=== PATIENT | female | born 1985 | race Hispanic/Latino ===

== ENCOUNTER → 2017-05-31 | Day surgery (SDC) | payer MEDICAID, OTHER ==
[~2017-05-31] MED LIST: Acetaminophen 500 MG TAB ONE
--- NOTE | 2017-05-31 15:38 | RAD ---
RIGHT ANKLE 3 VIEWS: Date: 05/31/17 PROVIDED CLINICAL HISTORY: Right ankle pain status post injury. FINDINGS: No evidence for fracture or other acute osseous abnormality. If there is persistent clinical concern, conservative management and follow-up imaging are advised. IMPRESSION: As above. POS: COLLIN
[2017-05-31 16:40] VITALS: BMI 39.6
--- NOTE | 2017-05-31 17:11 | SS ---
LABOR AND DELIVERY TRIAGE NOTE DATE OF SERVICE: 05/31/2017 REGULAR PHYSICIAN: [facility]. EVALUATING PHYSICIAN: Chalino Bolaños M.D. HISTORY OF PRESENT ILLNESS: Ms. Marc is a 31-year-old G7, P4, AB2 with an estimated date of confinement of 09/30/2017 who was brought up from the emergency room after a fall at home in which she sprained her ankle. She has been evaluated in the ER and has no fracture. Further questioning of the patient shows that the patient fell slowly on her side and did not have any direct forceful ab dominal contact. She denies vaginal bleeding, leakage of fluid or abdominal pain at this time. PAST OBSTETRICAL HISTORY: Remarkable for 4 vaginal deliveries, all reportedly uncomplicated and two miscarriages for which she required D and Cs. PAST MEDICAL HISTORY: Hypothyroid. CURRENT MEDICATIONS: vitamins and Synthroid. PAST SURGICAL HISTORY: Unremarkable. ALLERGIES: No known allergies. SOCIAL HISTORY: She denies tobacco or alcohol use. REVIEW OF SYSTEMS: Denies nausea, vomiting, fever, chills, vaginal bleeding. PHYSICAL EXAMINATION: VITAL SIGNS: Stable. She is afebrile. ABDOMEN: Soft and nontender. It is gravid. There is no guarding or rebound. PELVIC: Deferred, but no vaginal bleeding is seen. heart tones by Doppler are easy to obtain. ASSESSMENT: 1. 22-week intrauterine . 2. No evidence of labor. 3. Sprained ankle. PLAN: The patient will be discharged home at this time and she has been given precautions. She will follow up with the clinic for her next scheduled appointment.
== END ==
LOC: ERS 13:12 → L&D/OP 15:29
PROVIDERS: ATTEND Obstetrics & Gynecology
DX: O99.89 Other specified diseases and conditions complicating pregnancy, childbirth and the puerperium (principal); S93.401A Sprain of unspecified ligament of right ankle, initial encounter; O99.282 Endocrine, nutritional and metabolic diseases complicating pregnancy, second trimester; E03.9 Hypothyroidism, unspecified; Z3A.22 22 weeks gestation of pregnancy; Z79.899 Other long term (current) drug therapy; W19.XXXA Unspecified fall, initial encounter; Y92.009 Unspecified place in unspecified non-institutional (private) residence as the place of occurrence of the external cause

== ENCOUNTER 2017-09-30 05:30 | Inpatient (IN) | payer OTHER, SELFPAY ==
[2017-09-30 10:58] VITALS: BMI 40.4
[2017-09-30] MEDS ORDERED: NS / Oxytocin 40 units/1000ml 1,000 ML IV PRN (12:19)
[2017-09-30] MEDS ORDERED: Lidocaine 1% (PF) 30 ML VIAL SC PRN (12:19)
[2017-09-30] MEDS ORDERED: HYDROcodone/Acetaminophen 5/325 mg Tablet PO PRN (12:19)
[2017-09-30] MEDS ORDERED: Ibuprofen 800 MG TAB PO PRN (12:19)
[2017-09-30] MEDS ORDERED: Acetaminophen/Codeine 30-300mg Tablet PO PRN (12:19)
[2017-09-30] MEDS ORDERED: NS w/ Oxytocin 10 units 500 ML IV SCH (12:30)
[2017-09-30] MEDS ORDERED: Misoprostol 100 MCG TAB VAG SCH (12:30)
[2017-09-30] MEDS ORDERED: Acetaminophen 500 MG TAB PO PRN (12:58)
[2017-09-30] MEDS ORDERED: Ondansetron HCl/PF 4 MG/2 ML Vial IVP PRN (12:58)
[2017-09-30] MEDS ORDERED: Promethazine HCl 25 MG/ML VIAL IM PRN (12:58)
[2017-09-30] MEDS ORDERED: Penicillin G Potassium 5 MILL.UNITS in Sodium Chloride 0.9% 100 ML IVPB SCH (13:00)
[2017-09-30] MEDS: Lactated Ringer's 1,000 ML IV SCH (13:08)
--- NOTE | 2017-09-30 14:30 | PDOC.LDHP ---
Labor and Delivery H&P Chief complaint: contractions Current complications: other Past Medical History: 1. HTN 2. Anemia 3. Hypothyroid 4. TB exp - Physical Exam Heart: RRR Lungs: CTAB Abdomen: gravid Extremeties: no edema FHT: category 1 (130/mod/+accels) [place] contractions every: 3-4min - Vaginal Exam cm dilated: 4 Effacement: 50% Station: -2 - OB Labs Blood type: A RH: positive Antibody Screen: negative HIV: negative RPR: negative HEPSAg: negative 1 hour GCT: negative GBS: negative Urine drug screen: negative Rubella: non-immune - Assessment L&D Assessment: elective induction at term (post-dates IOL) - Plan Plan: admit to L&D, cervical ripening, labor augmentation if indicated -: 1. , sIUP, post dates IOL -CAT I strip -Will admit for induction of labor -50/-2, favorable chirinos score of 6-7 -Will continue cervical checks [id number] until reaches active labor -Patient desires epidural 2. Hypothyroidism -Will continue home dose of synthroid 3. Hx of Anemia -No concern at this time, will expectantly manage and consider following up H/H if delivery has a large QBL <Danita Win - Last Filed: 10/01/17 22:56> <Yoshi Fernández - Last Filed: 10/02/17 08:37> Allergies/Adverse Reactions: Allergies Allergy/AdvReac Type Severity Reaction Status Date / Time No Known Allergies Allergy Verified 09/30/17 10:58 Attending Addendum - Attending Addendum Date/Time: 10/02/17 0837 I personally evaluated the patient and discussed the management with Dr. Win I agree with the History, Examination, Assessment and Plan documented above with any addition or exceptions noted below. <Yoshi Fernández - Last Filed: 10/02/17 08:37>
[2017-09-30 15:48] LABS: Hemoglobin 11.2 g/dL (12.0-16.0); Mean Corpuscular HGB CONC 34.1 g/dL (32.0-36.0); Mean Corpuscular Volume 85.1 fL (78.0-98.0); Mean Platelet Volume 10.1 fL (7.4-10.4); Platelet Count 163 thou/uL (130-400); RBC Distribution Width 13.8 % (11.5-14.5); Red Blood Cell (RBC) Count 3.87 mill/uL (4.20-5.40); White Blood Cell (WBC) Count 6.6 thou/uL (4.8-10.8)
[2017-09-30 16:16] LABS: Syphilis Antibody Nonreactive (Nonreactive); Syphilis Antibody Index 0.13 S/CO (<1.00 Non-Reactive)
[2017-09-30 16:17] LABS: HBSAg Index 0.21 S/CO (0-0.99); Hep B Surf Ag Non-Reactive S/CO (NonReactive)
[2017-09-30] MEDS ORDERED: Penicillin G 2.5 MILL.units 2.5 MILL.UNITS in Premix Bag 1 BAG IVPB SCH (17:00)
--- NOTE | 2017-09-30 19:26 | PDOC.OBLPN ---
FMR OB Labor PN: Subj - Interval History Hospital Day: 0 Chief Complaint: painful contractions Interval History: Patient feeling contractions q4 FMR OB Labor PN: Obj - Maternal Vital signs: VS reviewed and normal FMR OB Labor PN: Exam - Physical Exam General: NAD, awake, alert and oriented - Pelvic Exam SVE: ?2/50/-3 FMR OB Labor PN: Data - Labs Lab results: Laboratory Results - last 24 hr 09/30/17 09/30/17 09/30/17 10:46 10:46 10:46 WBC RBC Hgb Hct MCV MCH MCHC RDW Plt Count MPV Syphilis IgG/IgM Ab Nonreactive Hep Bs Antigen Non-Reactive Blood Type A POSITIVE Antibody Screen NEGATIVE 09/30/17 10:46 WBC 6.6 RBC 3.87 L Hgb 11.2 L Hct 33.0 L MCV 85.1 MCH 29.0 MCHC 34.1 RDW 13.8 Plt Count 163 MPV 10.1 Syphilis IgG/IgM Ab Hep Bs Antigen Blood Type Antibody Screen FMR OB Labor PN: A/P Disposition: 32 yo at 40.0w here for elective IOL - no cervical change appreciated on - will give break, allow to eat, and re-evaluate by night team for cervical ripening
[2017-09-30] MEDS ORDERED: Bupivacaine 0.75% 13.4 ML, fentaNYL Citrate/PF 400 MCG in Sodium Chloride 0.9% 78.6 ML EPIDURAL SCH (20:00)
[2017-09-30] MEDS ORDERED: DISCONTINUE ALL PREVIOUS NARCOTICS FS SCH (20:00)
--- NOTE | 2017-09-30 20:45 | PDOC.LDPN ---
Labor & Delivery Progress Note - Objective Vital signs reviewed and normal: yes (BP: 103/54 HR: 71) General: NAD, resting Uterine fundus: non tender Dilation: closed Effacement: 50% Station: -3 FHT: category 1, variability present (accelerations present) [place] contractions every: originally q5m after d/c pit; currently no contractions Procedures: Cytotec placed @ 2100 Resuscitative measures: maternal position change - Assessment (1) Term Code(s): Z34.80 - ENCOUNTER FOR SUPRVSPeter OF NORMAL , UNSP TRIMESTER Current Visit: Yes Status: Acute -: 32YO at 40.0 weeks here for an elective IOL - Pit was stopped and patient was allowed to eat. - ~1 hour after eating, check @ ~2100 was closed/50/-3 so cytotec was placed. - Will recheck in 4 hours.
[2017-09-30] MEDS ORDERED: Misoprostol 100 MCG TAB ONE (20:49)
[2017-10-01] MEDS: Misoprostol 100 MCG TAB VAG SCH ×4 (01:04→13:18)
--- NOTE | 2017-10-01 01:12 | PDOC.LDPN ---
Labor & Delivery Progress Note - Subjective Subjective: comfortable, no concerns - Objective Vital signs reviewed and normal: yes General: NAD, resting Uterine fundus: non tender Dilation: closed Effacement: 50% Station: -3 FHT: category 1, variability present Resuscitative measures: maternal IV fluids - Assessment (1) Term Code(s): Z34.80 - ENCOUNTER FOR SUPRVSN OF NORMAL , UNSP TRIMESTER Current Visit: Yes Status: Acute Plan: labor augmentation -: 32YO at 40.0 weeks here for an elective IOL. - check @ ~0100 was unchanged from last check s/p cytotec x 1. - cytotec x 2 was placed @ ~0100. - Will recheck in 4 hours to evaluate for cervical change.
--- NOTE | 2017-10-01 05:02 | PDOC.LDPN ---
Labor & Delivery Progress Note - Subjective Subjective: comfortable - Objective Vital signs reviewed and normal: yes General: NAD, resting Uterine fundus: non tender Dilation: 2 Effacement: 50% Station: -2 FHT: category 1, variability present - Assessment (1) Term Code(s): Z34.80 - ENCOUNTER FOR SUPRVSN OF NORMAL , UNSP TRIMESTER Current Visit: Yes Status: Acute -: 32YO at 40.0 weeks here for an elective IOL. - Check @ 04:45 was significant for some progress @ 2/50/-2. - Cytotec x 3 was given as Childress score is only 5. - Will recheck in 4 hours.
[2017-10-01] MEDS: Lactated Ringer's 1,000 ML IV SCH ×2 (05:32→13:18)
[2017-10-01] MEDS ORDERED: Levothyroxine Sodium 50 MCG TAB PO SCH (06:00)
--- NOTE | 2017-10-01 08:34 | PDOC.LDPN ---
Labor & Delivery Progress Note - Subjective Subjective: comfortable - Objective Vital signs reviewed and normal: yes General: resting Uterine fundus: non tender Dilation: unable to determine Station: -3 FHT: category 1 [place] contractions every: q15 min - Assessment (1) Term Code(s): Z34.80 - ENCOUNTER FOR SUPRVSN OF NORMAL , UNSP TRIMESTER Current Visit: Yes Status: Acute (2) Hypothyroidism affecting in third trimester Code(s): O99.283 - ENDO, NUTRITIONAL AND METAB DISEASES COMP PREG, THIRD TRI; E03.9 - HYPOTHYROIDISM, UNSPECIFIED Current Visit: Yes Status: Acute (3) Anemia affecting in third trimester Code(s): O99.013 - ANEMIA COMPLICATING , THIRD TRIMESTER Current Visit: Yes Status: Acute (4) Glucose intolerance Code(s): E74.39 - OTHER DISORDERS OF INTESTINAL CARBOHYDRATE ABSORPTION Current Visit: Yes Status: Acute (5) Obesity affecting Code(s): O99.210 - OBESITY COMPLICATING , UNSPECIFIED TRIMESTER Current Visit: Yes Status: Acute Plan: other -: 32 yo now at 40.1w (EDC 09/30/17) by 11.2w sono here for elective induction 1. TIUP - Induction moving very slowly - Unable to obtain clear cervical check 2/2 station and balloon placement attempted but unsuccessful - Cytotec #4 placed - If contraction pattern improves, will consider augmenting with pitocin 2. Hypothyroidism - On synthroid 50 mcg at start of , normal since discontinued mid- - Antibodies positive - TSH all WNL (1.7, 0.792, 1.31, 0.924) 3. Remote history of chlamydia (2006) - Treated and negative this 4. Obesity 5. H/o D&C 6. Anemia of - H&H stable on admission 7. Glucose intolerance - 1 hour GTT elevated, 3 hour WNL - a1c 5.6 8. Retroplacental fibroid 9. Fundal placenta 10. GBS negative Plan reviewed with Dr. Fernández who agrees.
--- NOTE | 2017-10-01 12:14 | PDOC.LDPN ---
Labor & Delivery Progress Note - Subjective Subjective: comfortable - Objective Vital signs reviewed and normal: yes General: resting Uterine fundus: non tender Dilation: unable to determine Station: -3 FHT: category 1 (135/mod/+accels/no decels) [place] contractions every: q5-15 - Assessment (1) Term Code(s): Z34.80 - ENCOUNTER FOR SUPRVSN OF NORMAL , UNSP TRIMESTER Status: Acute (2) Hypothyroidism affecting in third trimester Code(s): O99.283 - ENDO, NUTRITIONAL AND METAB DISEASES COMP PREG, THIRD TRI; E03.9 - HYPOTHYROIDISM, UNSPECIFIED Status: Acute (3) Anemia affecting in third trimester Code(s): O99.013 - ANEMIA COMPLICATING , THIRD TRIMESTER Status: Acute (4) Glucose intolerance Code(s): E74.39 - OTHER DISORDERS OF INTESTINAL CARBOHYDRATE ABSORPTION Status : Acute (5) Obesity affecting Code(s): O99.210 - OBESITY COMPLICATING , UNSPECIFIED TRIMESTER Status: Acute -: 32 yo now at 40.1w (EDC 09/30/17) by 11.2w sono here for elective induction 1. TIUP - Induction moving very slowly - Unable to obtain clear cervical check 2/2 station and balloon placement attempted but unsuccessful - s/p Cytotec x4 - Discussed with patient and she would like to return home and expectantly manage there - Will order BPP, NST reassuring 135/mod/+accels/no decels - If BPP WNL, will schedule induction for next week if does not return in labor prior 2. Hypothyroidism - On synthroid 50 mcg - Antibodies positive - TSH all WNL (1.7, 0.792, 1.31, 0.924) 3. Remote history of chlamydia (2006) - Treated and negative this 4. Obesity 5. H/o D&C 6. Anemia of - H&H stable on admission 7. Glucose intolerance - 1 hour GTT elevated, 3 hour WNL - a1c 5.6 8. Retroplacental fibroid 9. Fundal placenta 10. GBS negative Plan reviewed with Dr. Fernández who agrees. <Emelia Andrade E - Last Filed: 10/01/17 12:31> Attending Addendum - Attending Addendum Date/Time: 10/01/17 1600 I personally evaluated the patient and discussed the management with Dr. Andrade I agree with the History, Examination, Assessment and Plan documented above with any addition or exceptions noted below. Extremely difficult exam dut to anatomy and high station. Ultrasound confirms vertex. Adequate YOHANA, reassuring NST. <Yoshi Fernández - Last Filed: 10/01/17 16:01>
[2017-10-01 13:17] VITALS: BP 104/71; TEMP 98.4
[2017-10-01] MEDS: NS w/ Oxytocin 10 units 500 ML IV SCH (13:18)
--- NOTE | 2017-10-01 13:30 | ULT ---
BIOPHYSICAL PROFILE: Real-time imaging of the pelvis was performed. This shows amniotic fluid that overall appears somewh at diminished. The amniotic fluid index is 7.2. There is a pocket of fluid greater than 2 cm. Ther efore, by biophysical profile, the scar is 2 of a possible 2 on amniotic fluid. movements, fet al breathing, and tone also score 2. heart rate 137 b.p.m. Placenta is fundal in location. IMPRESSION: biophysical profile score of 8 out a possible 8. POS: COLLIN
--- NOTE | 2017-10-01 15:24 | PDOC.LDPN ---
Labor & Delivery Progress Note - Subjective Subjective: comfortable - Objective Vital signs reviewed and normal: yes General: resting Uterine fundus: non tender Dilation: unable to determine Station: -3 FHT: category 1 [place] contractions every: 4-5 minutes - Assessment (1) Term Code(s): Z34.80 - ENCOUNTER FOR SUPRVSN OF NORMAL , UNSP TRIMESTER Status: Acute (2) Hypothyroidism affecting in third trimester Code(s): O99.283 - ENDO, NUTRITIONAL AND METAB DISEASES COMP PREG, THIRD TRI; E03.9 - HYPOTHYROIDISM, UNSPECIFIED Status: Acute (3) Anemia affecting in third trimester Code(s): O99.013 - ANEMIA COMPLICATING , THIRD TRIMESTER Status: Acute (4) Glucose intolerance Code(s): E74.39 - OTHER DISORDERS OF INTESTINAL CARBOHYDRATE ABSORPTION Status : Acute (5) Obesity affecting Code(s): O99.210 - OBESITY COMPLICATING , UNSPECIFIED TRIMESTER Status: Acute Plan: other -: 32 yo now at 40.1w (EDC 09/30/17) by 11.2w sono here for elective induction 1. TIUP - Unable to obtain clear cervical check 2/2 station and balloon placement attempted but unsuccessful - s/p Cytotec x4 - Discussed with patient and she would like to return home and expectantly manage there - BPP/NST 12/17 and induction (cervidil) scheduled for next Friday as this one was unsuccessful with pit/cytotec 2. Hypothyroidism - On synthroid 50 mcg - Antibodies positive - TSH all WNL (1.7, 0.792, 1.31, 0.924) - Continue 3. Remote history of chlamydia (2006) - Treated and negative this 4. Obesity 5. H/o D&C 6. Anemia of - H&H stable on admission 7. Glucose intolerance - 1 hour GTT elevated, 3 hour WNL - a1c 5.6 8. Retroplacental fibroid 9. Fundal placenta 10. GBS negative Plan reviewed with Dr. Fernández who agrees. Labor precautions and return precautions given. Kick count instructions discussed. <Emelia Andrade - Last Filed: 10/01/17 15:24> Attending Addendum - Attending Addendum Date/Time: 10/01/17 1603 I personally evaluated the patient and discussed the management with Dr. Andrade I agree with the History, Examination, Assessment and Plan documented above with any addition or exceptions noted below. Unfortunate unsuccessful attempt at IOL. Multigravida with adequate pelvis, baby remains at high station. U/S and BPP are reassuring as is EFM. Cytotec & pitocin ineffective. Unable to place balloon. I do not feel that continuing is in the patients best interest. eliable patient - will discharge with detailed labor precautions including kick counts. Also recommend NST in 2- 3 days if undelivered. If no spontaneous labor then try next week with Cervidil and pit. <Yoshi Fernández - Last Filed: 10/01/17 16:09>
== END 2017-10-01 15:48 | disposition home health service (06) | DRG 775 ==
LOC: L&D 10:15
PROVIDERS: ADMIT Student in an Organized Health Care Education/Training Program; ATTEND Student in an Organized Health Care Education/Training Program
PROC: 3E0P7VZ Introduction of Hormone into Female Reproductive, Via Natural or Artificial Opening (ICD-10-PCS; principal; 2017-09-30)
DX: O48.0 Post-term pregnancy (principal); O99.284 Endocrine, nutritional and metabolic diseases complicating childbirth; O99.02 Anemia complicating childbirth; O99.214 Obesity complicating childbirth; O99.814 Abnormal glucose complicating childbirth; E03.9 Hypothyroidism, unspecified; Z3A.40 40 weeks gestation of pregnancy; O61.0 Failed medical induction of labor
CPT/HCPCS: 76819; 85027; 86780; 86850; 86900; 86901; 87340; A4216; J3010; J7050

== ENCOUNTER 2017-10-08 22:00 | Inpatient (IN) | payer MEDICAID, OTHER, SELFPAY ==
[2017-10-09 01:16] VITALS: BMI 40.6
[2017-10-09] MEDS: Lactated Ringer's 1,000 ML IV SCH ×3 (01:30→09:47)
[2017-10-09] MEDS ORDERED: Promethazine HCl 25 MG/ML VIAL IM PRN ×3 (02:38→12:30)
[2017-10-09] MEDS ORDERED: Docusate 100 MG CAP PO PRN (02:38)
[2017-10-09] MEDS ORDERED: Ondansetron HCl/PF 4 MG/2 ML Vial IVP PRN ×4 (02:38→12:30)
--- NOTE | 2017-10-09 02:43 | PDOC.FPROB ---
FMR OB H&P: HPI - History of Present Illness Chief Complaint: induction of labor History of Present Illness: 32 yo @ 41.2 by 11 wk sono here for post-dates induction. Baby moving well, no loss of fluid or vaginal bleeding. Mother is having contractions every 4-5 minutes. FMR OB H&P: Current - Care : 6 Para: [id number] Gestational age: 41.2 Due date: September 30 Dating Criteria: 11 wk sono - OB Labs Blood type: A RH: positive Antibody Screen: negative HIV: negative RPR: negative HepBsAg: negative Rubella: immune Quad screen: unknown Gonorrhea: negative Chlamydia: negative 3 hour GTT: 82/144/109/58 A1c: 5.6 GBS: negative H&H: 10.5/31.3 - First Trimester Ultrasound First trimester: posterior fibroid - Anatomy Survey Anatomy survey: wnl placenta posterior FMR OB H&P: History - Past Medical History PMH: hypothyroidism, obesity, hx of chlamydia in 2006 - OB History OB History: Hx of 2 spontaneous abortions, one at 6 weeks and one at 12 weeks. Hx 3 vaginal deliveries at 37, 38, and 39 weeks, weights were 6 lb, 7 lb 12 oz, and 5 lb 5 oz. Hx of chlamydia in 2006 s/p tx, neg in this . failed induction 1 week ago. Anemia of with this . - Surgical History Sx History: none - Social History Social History: no t/a/d - Family History Family History: father with HTN and prediabetes, aunt with [place], denied cancer or other genetic diseases FMR OB H&P: Medications - Current Home Medications: Medication Instructions Recorded Confirmed Type Levothyroxine Sodium [Synthroid] 50 mcg PO DAILY 05/31/17 10/09/17 History Vitamin 1 tablet PO DAILY 05/31/17 10/09/17 History Allergies/Adverse Reactions: Allergies Allergy/AdvReac Type Severity Reaction Status Date / Time No Known Allergies Allergy Verified 10/09/17 01:07 FMR OB H&P: ROS - Review of Systems General: denies: fever/chills Eyes: denies: eye pain, vision changes ENT: denies: rhinorrhea, sore throat Cardiovascular: denies: chest pain Respiratory: denies: cough, congestion Gastrointestinal: denies: nausea, vomiting, diarrhea, constipation, bright red blood, dark black tarry stools Genitourinary (Female): denies: dysuria, vaginal bleeding FMR OB H&P: Vital Signs - Maternal Vital signs: Vital Signs - First Documented Temp Pulse Resp BP 98.6 F 73 18 125/56 L 10/09/17 01:04 10/09/17 01:04 10/09/17 01:04 10/09/17 01:04 - Heart Tones Baseline: 135 Variability: moderate Acceleration: present Deceleration: absent Category: category 1 [place] contractions every: 4-5 minutes FMR OB H&P: Physical Exam - Physical Exam General: NAD, awake, alert and oriented HEENT: normocephalic and atraumatic, PERRLA, MMM, oropharynx clear Neck: supple, no LAD Heart: RRR, normal S1/S2, no murmurs/rubs/gallops, pulses present General: CTAB, no respiratory distress, good air movement, no rales/rhonchi, no wheezing Abdomen: soft, gravid, non-tender, bowel sound present Skin: no rash, good tugor, capillary refill <2 seconds Psychiatric: intact recent and remote memory, good judgement and insight, normal mood and affect - Pelvic Exam Vulva: normal hair distribution, appropriate radha stage FMR OB H&P: A/P - Problem List (1) Post-dates Current Visit: Yes Status: Acute Code(s): O48.0 - POST-TERM (2) Elective induction of labor planned Current Visit: Yes Status: Acute Code(s): [id number] - (3) Anemia affecting in third trimester Current Visit: No Status: Acute Code(s): O99.013 - ANEMIA COMPLICATING , THIRD TRIMESTER (4) Hypothyroidism affecting in third trimester Current Visit: No Status: Chronic Code(s): O99.283 - ENDO, NUTRITIONAL AND METAB DISEASES COMP PREG, THIRD TRI; E03.9 - HYPOTHYROIDISM, UNSPECIFIED (5) Obesity affecting Current Visit: No Status: Chronic Code(s): O99.210 - OBESITY COMPLICATING , UNSPECIFIED TRIMESTER Discussion: Date/Time: 10/09/17 0241 32 yo @ 41.2 by 11 wk sono here for induction of labor. Induction of labor, sIUP -SVE 4/50/-3, DIAZ score of 5 -June every 4-5 minutes -Cat 1 FHTs, reassuring - complications: obesity, failed induction 1 wk prior, anemia of , hypothyroidism -GBS negative -Augment with cytotec -Recheck SVE in 4 hrs This H&P was discussed with Dr. Costa and Dr. Cole who agree with the above documentation and plan. Attending Addendum - Attending Addendum Date/Time: 10/09/17 1960 I personally evaluated the patient and discussed the management with Dr. Mckinley. I agree with the History, Examination, Assessment and Plan documented above with any addition or exceptions noted below.
[2017-10-09 02:51] LABS: Hemoglobin 10.9 g/dL (12.0-16.0); Mean Corpuscular Volume 85.6 fL (78.0-98.0); Mean Platelet Volume 9.8 fL (7.4-10.4); Platelet Count 151 thou/uL (130-400); RBC Distribution Width 14.1 % (11.5-14.5); Red Blood Cell (RBC) Count 3.65 mill/uL (4.20-5.40); White Blood Cell (WBC) Count 7.7 thou/uL (4.8-10.8)
[2017-10-09 03:19] LABS: HBSAg Index 0.23 S/CO (0-0.99); Hep B Surf Ag Non-Reactive S/CO (NonReactive)
[2017-10-09 05:51] LABS: Syphilis Antibody Nonreactive (Nonreactive); Syphilis Antibody Index 0.13 S/CO (<1.00 Non-Reactive)
--- NOTE | 2017-10-09 06:23 | PDOC.LDPN ---
Labor & Delivery Progress Note - Subjective Subjective: comfortable, no concerns - Objective Vital signs reviewed and normal: yes General: NAD, resting Uterine fundus: non tender SVE: Cervix is soft and midline Dilation: 4.5-5 Effacement: 50% Station: -2 FHT: category 1, variability present [place] contractions every: 5-6 minutes Resuscitative measures: maternal IV fluids, maternal position change - Assessment (1) Elective induction of labor planned Code(s): [id number] - Current Visit: Yes Status: Acute (2) Post-dates Code(s): O48.0 - POST-TERM Current Visit: Yes Status: Acute (3) Anemia affecting in third trimester Code(s): O99.013 - ANEMIA COMPLICATING , THIRD TRIMESTER Current Visit: No Status: Acute (4) Hypothyroidism affecting in third trimester Code(s): O99.283 - ENDO, NUTRITIONAL AND METAB DISEASES COMP PREG, THIRD TRI; E03.9 - HYPOTHYROIDISM, UNSPECIFIED Current Visit: No Status: Chronic (5) Obesity affecting Code(s): O99.210 - OBESITY COMPLICATING , UNSPECIFIED TRIMESTER Current Visit: No Status: Chronic (6) Glucose intolerance Code(s): E74.39 - OTHER DISORDERS OF INTESTINAL CARBOHYDRATE ABSORPTION Current Visit: No Status: Acute Plan: pitocin for augmentation, resuscitative measures -: 32YO @ 41.3 by 11 wk sono here for elective IOL. 1. Induction of labor, sIUP - SVE 4.5-5/50/-2. - June every 5-6 minutes. - Cat 1 FHTs. Will continue with LR @ 125mL/hr and position change PRN for maternal resuscitation. - GBS negative. - Patient never got cytotec but will consider starting pitocin as Childress score is now a 7. - Will recheck SVE in 4 hrs. 2. anemia of : - Will continue PNV and consider starting ferrous sulfate. - Hgb on admission was 10.9. 3. Hypothyroidism: - Will continue levothyroxine. 4. Obesity: - Aware. - Will mitochondrial disorders counselor on proper diet and exercise. <Jessica Espino - Last Filed: 10/09/17 06:24> Attending Addendum - Attending Addendum Date/Time: 10/09/17 1331 I personally evaluated the patient and discussed the management with Dr. Espino I agree with the History, Examination, Assessment and Plan documented above with any addition or exceptions noted below. 32 yo female at 41.3 wks by 11 wk sono admitted for post date IOL. Doing well. No complaints. FHT cat 1 Will start pitocin. Repeat exam in 4 hours. Would like epidural for pain control. Cephalic by gretchen. Tao <Bernadette Yousif - Last Filed: 10/10/17 13:34>
[2017-10-09] MEDS ORDERED: NS w/ Oxytocin 10 units 500 ML IV SCH (07:30)
[2017-10-09] MEDS ORDERED: Lidocaine 1% (PF) 30 ML VIAL SC PRN (08:31)
[2017-10-09] MEDS ORDERED: Diphenoxylate HCl/Atropine Tablet PO PRN (08:31)
[2017-10-09] MEDS ORDERED: NS / Oxytocin 40 units/1000ml 1,000 ML IV PRN (08:31)
[2017-10-09] MEDS ORDERED: Carboprost 250 MCG/ML AMP IM PRN (08:31)
[2017-10-09] MEDS ORDERED: Methylergonovine 0.2 MG/ML VIAL IM PRN (08:31)
[2017-10-09] MEDS ORDERED: Acetaminophen 500 MG TAB PO PRN (08:31)
[2017-10-09] MEDS ORDERED: Ibuprofen 800 MG TAB PO PRN (08:31)
[2017-10-09] MEDS ORDERED: Misoprostol 200 MCG TAB PR PRN (08:31)
[2017-10-09] MEDS ORDERED: Butorphanol Tartrate 1 MG/ML VIAL SLOW IVP PRN (08:31)
[2017-10-09] MEDS ORDERED: DISCONTINUE ALL PREVIOUS NARCOTICS FS SCH (09:45)
[2017-10-09] MEDS ORDERED: Bupivacaine 0.5% 20 ML, fentaNYL Citrate/PF 400 MCG in Sodium Chloride 0.9% 72 ML EPIDURAL SCH (09:45)
[2017-10-09] MEDS ORDERED: diphenhydrAMINE 50 MG/ML VIAL IVP PRN ×2 (10:34→12:30)
[2017-10-09] MEDS ORDERED: ePHEDrine/0.9% NaCl/PF SYRINGE 50 mg/10 ml SLOW IVP PRN (10:34)
[2017-10-09] MEDS ORDERED: Acetaminophen 325 MG TAB PO PRN (10:34)
[2017-10-09] MEDS ORDERED: Naloxone HCl 0.4 mg/ml Vial IVP PRN ×4 (10:34→12:30)
[2017-10-09] MEDS ORDERED: Lactated Ringer's 500 ML IV PRN (10:34)
[2017-10-09] MEDS ORDERED: Eucerin (Mineral Oil/Petrolatum,White) 30 gm Jar TOP PRN ×2 (10:34→12:30)
[2017-10-09] MEDS ORDERED: CEFAZOLIN/Water 2 GM/20 ML SYRINGE ONE (10:41)
[2017-10-09] MEDS ORDERED: Bicitra 30 ML UDCUP ONE ×2 (10:41→12:42)
[2017-10-09] MEDS ORDERED: Oxytocin 10 UNITS/ML VIAL ONE (10:44)
[2017-10-09] MEDS ORDERED: PHENYLEPHRINE-NS 100 MCG/ML 10 ML SYRINGE ONE ×2 (10:44→12:47)
[2017-10-09] MEDS ORDERED: Lidocaine 2% 10 ML INJ ONE (10:44)
[2017-10-09] MEDS ORDERED: Communication Order-Pharmacy FS SCH ×2 (10:45→12:30)
[2017-10-09] MEDS ORDERED: fentaNYL Citrate/PF 400 MCG, Bupivacaine 0.5% 20 ML in Sodium Chloride 0.9% 72 ML EPIDURAL SCH (10:45)
[2017-10-09] MEDS ORDERED: Fentanyl 100 MCG/2 ML VIAL ONE ×2 (10:48→12:42)
[2017-10-09] MEDS ORDERED: Dexamethasone 4 mg/ml Vial ONE (11:05)
[2017-10-09] MEDS ORDERED: Ondansetron HCl/PF 4 MG/2 ML Vial ONE ×2 (11:05→12:47)
[2017-10-09] MEDS ORDERED: Ketorolac Tromethamine 30 MG/ML VIAL ONE ×2 (11:05→12:47)
--- NOTE | 2017-10-09 11:09 | PRG ---
DATE OF SERVICE: 10/09/2017 TIME OF EVALUATION: 10:50-10:55 a.m. LOCATION: Labor and Delivery OR. REASONF FOR CALLING DIGITAL MEDIA STRATEGIST HOSPITALIST: I was called by Dr. Bernadette Yousif, through Mary, the patient's nurse, that this was a cord prolapse and proceeding to a stat . COURSE OF EVENTS: In brief, I was in the ER bed 9 at bedside with the patient, suspected of having an ectopic . I was at the bedside reviewing the risks and benefits of treatment for her when I received a call on my Ascom phone notifying me of the stat . I notified the patient in the ER that I had an emergency and by the time I left the ER and traveled back to Labor and Delivery (which was within 5 minutes) the patient was already in the OR with Dr. Yousif and Dr. Leon beginning the surgery. I scrubbed and gowned at time of hysterotomy creation by Dr. Yousif. A vacuum was placed by Dr. Yousif and delivery was effected. The baby was vigorous at delivery. NICU was also present in the room by the time that I arrived. Although I was scrubbed and gowned and in the OR for the delivery, I did not physically participate with the delivery. Once again, I was notified of the patient requiring a stat C- section for cord prolapse while I was in the Emergency Room Department with another patient and therefore arrived just after hysterotomy creation. For full details, please turn to the dictation by the primary Family Medicine Care Team. ANI
[2017-10-09 11:23] LABS: Actual Bicarbonate (HCO3a) 19.6 mEq/L (22-28); Base Excess (BEa) -14.6 mEq/L (-2.0 to +3.0)
--- NOTE | 2017-10-09 12:24 | PDOC.LDPN ---
Labor & Delivery Progress Note - Subjective Subjective: comfortable - Objective Vital signs reviewed and normal: yes General: NAD Uterine fundus: palpable contractions Dilation: 5 Effacement: 50% Station: -2 FHT: category 3, variable decelerations Cutler contractions every: 3-7 minutes Other exam findings: heart rated dropped to the 40's while trying to place IUPC Procedures: Patient was taken to SCAT C/S 2/2 cord prolapse AROM: meconium stained fluid (Fluid was also blood-tinged and white curd-like discharge was noted.) FSE placed: yes Resuscitative measures: maternal oxygen, maternal IV fluids, maternal position change, other - Assessment (1) Elective induction of labor planned Code(s): [id number] - Current Visit: Yes Status: Suspected (2) Post-dates Code(s): O48.0 - POST-TERM Current Visit: Yes Status: Acute (3) Anemia affecting in third trimester Code(s): O99.013 - ANEMIA COMPLICATING , THIRD TRIMESTER Current Visit: No Status: Acute (4) Hypothyroidism affecting in third trimester Code(s): O99.283 - ENDO, NUTRITIONAL AND METAB DISEASES COMP PREG, THIRD TRI; E03.9 - HYPOTHYROIDISM, UNSPECIFIED Current Visit: No Status: Chronic (5) Obesity affecting Code(s): O99.210 - OBESITY COMPLICATING , UNSPECIFIED TRIMESTER Current Visit: No Status: Chronic (6) Glucose intolerance Code(s): E74.39 - OTHER DISORDERS OF INTESTINAL CARBOHYDRATE ABSORPTION Current Visit: No Status: Acute (7) Prolapsed cord affecting fetus or Code(s): P02.4 - AFFECTED BY PROLAPSED CORD Current Visit: Yes Status: Acute (8) delivery delivered Code(s): O82 - ENCOUNTER FOR DELIVERY WITHOUT INDICATION Current Visit: Yes Status: Acute -: Of note: this documentation is occuring ~ 2.5 hours after the actual patient encounter 2/2 need to go back for a STAT C/S. 32YO @ 41.3 by 11 wk sono who required a STAT C/S 2/2 cord prolapse. 1. Induction of labor, sIUP - SVE @ approximately 10:30, patient was at 5/50/-2 after being on a pitocin drip for ~2 hours. She was rosalinda every 3-7 minutes. - An amniotic sac was palpated during the SVE and artificially ruptured yielding blood-tinged, meconium stained amniotic fluid with some white, curd- like discharge as well. No cord was palpated during this procedure. 2. Umbilical cord prolapse requiring a STAT LTCS: Following AROM, variable decelerations were noted on the NST so the mother was repositioned onto her right side which alleviated the decelerations. A FSE was then placed without any difficulty & no cord was palpated during this procedure. The patient was then rolled back onto her back for placement of an IUPC. Of note, once again, no cord was palpated during the IUPC placement attempt. However, IUPC placement was quickly abandoned as the heart rate dropped into the 40s. A repeat SVE was then performed which revealed a prolapsed umbilical cord and the patient was taken back for a STAT C/S. The patient delivered a healthy, TAGA male infant @ 10:52. Please see OP note for more delivery details. 3. Anemia of : - Aware. Hgb on admission was 10.9. - Will continue PNVs. 4. Hypothyroidism: - Will continue levothyroxine. 5. Obesity: - Aware. - Will counseling center manager on proper diet and exercise. <Jessica Espino - Last Filed: 10/09/17 12:23> - Objective Dilation: 5 Effacement: 75% (80%) Station: -1 FHT: category 2 <Bernadette Yousif - Last Filed: 10/10/17 13:55> Attending Addendum - Attending Addendum Date/Time: 10/09/17 1336 I personally evaluated the patient and discussed the management with Dr. Espino I agree with the History, Examination, Assessment and Plan documented above with any addition or exceptions noted below. 32 yo female at 41.3 wks by 11 wk sono admitted for post dates IOL. Patient was placed on pitocin for augmentation earlier this AM. Contractions progressed. Received epidural for pain control. Discussed AROM for labor progression. Patient agreed. Patient was accessed by myself. SVE /-1. Noted to have cephalic presentation. No evidence of funic presentation or occult cord. Chorion noted to begin to rupture. Attempted digital rupture of amnion. Unsuccessful. Discussed with patient. Agreed with amniohook. Contraction further engaged head. Easy AROM with mod mec noted. Membranes sweeping performed. Again no evidence of cord. Due to maternal habitus and pitocin augmentation discussed option of IUPC. Patient agreed. Discussed changing providers for placement. While lying on back, variable decel occurred. Resolved with maternal change in position. Discussed placing FSE since would be switching to internal toco monitoring. Patient agreed. FSE easily placed by myself. No occult cord or funic presentation appreciated on repeat exam. Providers changed. IUPC placement attempted. Large gush of amniotic fluid. Moderate mec. heart tones down to 50s. Maternal resuscitation efforts given. IUPC placement aborted. Pitocin stopped. IVF bolus started quickly by nurse. FHT not improved with change in position to left then to right. I re- examined patient, cord prolapsed noted. Stat section called. I remained with vaginal hand until patient transferred to OR table where myself and nurse switched positions. FHT in OR 110. See OR note Tao <Bernadette Yousif - Last Filed: 10/10/17 13:55>
[2017-10-09] MEDS ORDERED: Promethazine HCl 25 MG SUPP PR PRN (12:30)
[2017-10-09] MEDS ORDERED: Ketorolac Tromethamine 30 MG/ML VIAL IVP SCH (12:30)
[2017-10-09] MEDS ORDERED: HYDROmorphone 2 MG/ML VIAL SLOW IVP PRN (12:30)
[2017-10-09] MEDS ORDERED: Meperidine HCl/PF 25 MG/ML VIAL SLOW IVP PRN (12:30)
[2017-10-09] MEDS ORDERED: Naloxone HCl 0.4 mg/ml Vial IV PRN (12:30)
[2017-10-09] MEDS ORDERED: Midazolam HCl 2 mg/2 ml Vial ONE (12:42)
[2017-10-09] MEDS ORDERED: Midazolam HCl 5 mg/5 ml Vial ONE (12:42)
[2017-10-09] MEDS ORDERED: Lidocaine 1% PF 5 ML VIAL ONE (12:47)
[2017-10-09] MEDS ORDERED: Dexamethasone 20 MG/5 ML VIAL ONE (12:47)
[2017-10-09] MEDS ORDERED: Simethicone Chewable 80 MG TAB PO PRN (13:07)
[2017-10-09] MEDS ORDERED: Lanolin Ointment 7 GM TUBE TOP PRN (13:07)
[2017-10-09] MEDS ORDERED: Azithromycin 500 MG in Sodium Chloride 0.9% 250 ML 250 ML IVPB ONE (13:07)
[2017-10-09] MEDS ORDERED: Adacel (T-DAP) 0.5 ML VIAL IM ONE (13:07)
[2017-10-09] MEDS ORDERED: Meperidine HCl/PF 25 MG/ML VIAL ONE (14:11)
--- NOTE | 2017-10-09 15:55 | PDOC.PP ---
Post Progress Note Post Day #: 0 Subjective: Patient states she is feeling well. She reports no pain, nausea, or vomiting. Is tolerating clear liquid diet well. Denies passing gas yet. Is having normal, expected amount of bleeding per nurse. States she tried breast feeding baby in recovery without much success but will try again later. PO intake tolerated: yes Flatus: no Ambulation: no Vital Signs (12 hours) Temp Pulse Resp 10/09/17 08:00 98.6 F 73 18 Weight Weight 97.522 kg - Physical Examination General: NAD Cardiovascular: no m/r/g, RRR Respiratory: clear to auscultation bilaterally, non-labored breathing Abdominal: + bowel sounds, lochia, no distention Skin: no rash Neurological: no gross focal deficits Psychiatric: A&Ox3, normal affect Result Diagrams: 10/09/17 01:31 Additional Labs: Post Labs Blood Type A POSITIVE 10/09/17 01:31 Hep Bs Antigen Non-Reactive S/CO (NonReactive) 10/09/17 01:31 (1) Elective induction of labor planned Code(s): [id number] - Status: Suspected (2) Post-dates Code(s): O48.0 - POST-TERM Status: Resolved (3) Anemia affecting in third trimester Code(s): O99.013 - ANEMIA COMPLICATING , THIRD TRIMESTER Status: Acute (4) Hypothyroidism affecting in third trimester Code(s): O99.283 - ENDO, NUTRITIONAL AND METAB DISEASES COMP PREG, THIRD TRI; E03.9 - HYPOTHYROIDISM, UNSPECIFIED Status: Chronic (5) Obesity affecting Code(s): O99.210 - OBESITY COMPLICATING , UNSPECIFIED TRIMESTER Status: Chronic (6) Glucose intolerance Code(s): E74.39 - OTHER DISORDERS OF INTESTINAL CARBOHYDRATE ABSORPTION Status : Acute (7) Prolapsed cord affecting fetus or Code(s): P02.4 - AFFECTED BY PROLAPSED CORD Status: Acute (8) delivery delivered Code(s): O82 - ENCOUNTER FOR DELIVERY WITHOUT INDICATION Status: Resolved - Assessment/Plan 32YO day 0 s/p primary STAT C/S 2/2 cord prolapse. 1. Day #0 s/p STAT LTCS: - Will continue routine care. - 1 dose of azithromycin given. Ordered 1g of ancef for postoperative prophylaxis. - Will continue NS 1000mL w/ 40 units of oxytocin PRN. - Will continue ibuprofen & tylenol PRN for pain and zofran and promethazine for nausea. - H/H ordered for the AM. - Stressed importance of strictly breast feeding for now and instructed patient to let us know if she continues having difficulty. - Routine consult ordered. 2. Anemia of : - Aware. Hgb on admission was 10.9. Repeat H/H ordered for the AM. - Will continue PNVs. 3. Hypothyroidism: - Will continue levothyroxine. 4. Obesity: - Aware. - Will financial counselor on proper diet and exercise. <Jesscia Espino - Last Filed: 10/09/17 16:00> Vital Signs (12 hours) Temp Pulse Resp BP 10/10/17 12:00 98.8 F 72 20 10/10/17 11:59 98.8 F 72 20 106/63 10/10/17 08:03 98.2 F 63 20 105/58 L 10/10/17 08:00 98.2 F 63 20 10/10/17 06:15 20 10/10/17 04:00 98.0 F 59 L 18 99/54 L 10/10/17 02:50 18 Weight Weight 97.522 kg Result Diagrams: 10/10/17 05:02 Additional Labs: Post Labs Blood Type A POSITIVE 10/09/17 01:31 Hep Bs Antigen Non-Reactive S/CO (NonReactive) 10/09/17 01:31 <Bernadette Yousif - Last Filed: 10/10/17 14:01> Attending Addendum - Attending Addendum Date/Time: 10/09/17 0359 I personally evaluated the patient and discussed the management with Dr. Espino and Dr. Leon I agree with the History, Examination, Assessment and Plan documented above with any addition or exceptions noted below. 32 yo female s/p STAT [facility] 2/2 cord prolapse. POD#0 Doing well. Pain controlled. Tolerating clears. No N/V. Lochia appropriate. Bandage clean and dry. VS reviewed. UOP reviewed. Fundus firm at umbilicus on exam. Appropriately tender. Non distended. RRR, CTA bilaterally Bandage in place, c/d . Monitor pain control and Lochia. Would like pp BTL. No circ for infant. ABrayMD <Bernadette Yousif - Last Filed: 10/10/17 14:01>
[2017-10-09] MEDS ORDERED: PROPOFOL 200 MG/20 ML VIAL ONE (16:16)
[2017-10-09] MEDS ORDERED: Lidocaine 2% PF Inj 2 ML VIAL ONE (16:21)
[2017-10-09] MEDS: Ketorolac Tromethamine 30 MG/ML VIAL IVP PRN ×2 (18:01→23:38)
[2017-10-09] MEDS ORDERED: CEFAZOLIN 1 GM in Sodium Chloride 0.9% 100 ML IVPB SCH (19:00)
[2017-10-09] MEDS ORDERED: Docusate Calcium (SURFAK) 240 MG CAP PO SCH (21:00)
[2017-10-10 05:31] LABS: Mean Corpuscular HGB CONC 34.1 g/dL (32.0-36.0); Mean Corpuscular Hemoglobin 29.5 pg (27.0-31.0); Mean Corpuscular Volume 86.6 fL (78.0-98.0); Mean Platelet Volume 9.9 fL (7.4-10.4); Platelet Count 123 thou/uL (130-400); RBC Distribution Width 13.9 % (11.5-14.5); Red Blood Cell (RBC) Count 3.03 mill/uL (4.20-5.40)
[2017-10-10] MEDS: Ketorolac Tromethamine 30 MG/ML VIAL IVP PRN (05:31)
--- NOTE | 2017-10-10 06:36 | PDOC.PP ---
Post Progress Note Post Day #: 1 PO intake tolerated: yes Vital Signs (12 hours) Temp Pulse Resp BP Pulse Ox 10/10/17 04:00 98.0 F 59 L 18 99/54 L 10/10/17 02:50 18 10/10/17 00:00 98.6 F 55 L 20 107/62 10/09/17 22:11 20 10/09/17 20:00 98.4 F 57 L 18 118/66 98 Weight Weight 97.522 kg - Physical Examination General: NAD Cardiovascular: no m/r/g, RRR Respiratory: clear to auscultation bilaterally, non-labored breathing Abdominal: + bowel sounds, lochia, no distention, appropriately TTP Extremities: negative homans (B) Neurological: no gross focal deficits Psychiatric: A&Ox3, normal affect Result Diagrams: 10/10/17 05:02 Additional Labs: Post Labs Blood Type A POSITIVE 10/09/17 01:31 Hep Bs Antigen Non-Reactive S/CO (NonReactive) 10/09/17 01:31 (1) Elective induction of labor planned Code(s): [id number] - Status: Suspected (2) Post-dates Code(s): O48.0 - POST-TERM Status: Resolved (3) Anemia affecting in third trimester Code(s): O99.013 - ANEMIA COMPLICATING , THIRD TRIMESTER Status: Acute (4) Hypothyroidism affecting in third trimester Code(s): O99.283 - ENDO, NUTRITIONAL AND METAB DISEASES COMP PREG, THIRD TRI; E03.9 - HYPOTHYROIDISM, UNSPECIFIED Status: Chronic (5) Obesity affecting Code(s): O99.210 - OBESITY COMPLICATING , UNSPECIFIED TRIMESTER Status: Chronic (6) Glucose intolerance Code(s): E74.39 - OTHER DISORDERS OF INTESTINAL CARBOHYDRATE ABSORPTION Status : Acute (7) Prolapsed cord affecting fetus or Code(s): P02.4 - AFFECTED BY PROLAPSED CORD Status: Resolved (8) delivery delivered Code(s): O82 - ENCOUNTER FOR DELIVERY WITHOUT INDICATION Status: Resolved - Assessment/Plan 32YO day 1 s/p primary STAT C/S 2/2 cord prolapse. 1. day #1 s/p STAT LTCS: - Will continue routine care. - Will continue ibuprofen & tylenol PRN for pain and zofran and promethazine for nausea. - Will continue to encourage breast feeding and will encourage ambulation. - Routine consult ordered. 2. Anemia of : - Aware. Hgb down to 9.0/26.3 this AM. - Will continue PNVs. 3. Hypothyroidism: - Will continue levothyroxine. 4. Obesity: - Aware. - Will counseling center manager on proper diet and exercise.
[2017-10-10] MEDS ORDERED: Docusate Calcium (SURFAK) 240 MG CAP PO PRN (06:40)
[2017-10-10] MEDS ORDERED: Ibuprofen 600 MG TAB PO PRN (08:06)
--- NOTE | 2017-10-10 08:11 | PDOC.PP ---
Post Progress Note Post Day #: 1 Subjective: Patient doing well. Pain moderately controlled, although she did state she was in a lot of pain when getting up to walk around. She has [place], tylenol, and ibuprofen for pain control. She is passing flatus. Patient ambulating without assistance and tolerating PO. Patient states lochia is minimal. It is consistent with a period at this point in time. PO intake tolerated: yes Flatus: yes Ambulation: yes Vital Signs (12 hours) Temp Pulse Resp BP 10/10/17 08:03 98.2 F 63 20 105/58 L 10/10/17 06:15 20 10/10/17 04:00 98.0 F 59 L 18 99/54 L 10/10/17 02:50 18 10/10/17 00:00 98.6 F 55 L 20 107/62 10/09/17 22:11 20 Weight Weight 97.522 kg - Physical Examination General: NAD Cardiovascular: no m/r/g Respiratory: clear to auscultation bilaterally, non-labored breathing Abdominal: + bowel sounds, lochia (minimal per patient. Had not soaked through pad this morning.), no distention, appropriately TTP Fundus firm & at: at umbilicus Extremities: negative homans (B) Skin: CS incision dry & intact (No drainage or openings in incision.), no rash Neurological: no gross focal deficits Psychiatric: A&Ox3, normal affect Result Diagrams: 10/10/17 05:02 Additional Labs: Post Labs Blood Type A POSITIVE 10/09/17 01:31 Hep Bs Antigen Non-Reactive S/CO (NonReactive) 10/09/17 01:31 (1) delivery delivered Code(s): O82 - ENCOUNTER FOR DELIVERY WITHOUT INDICATION Status: Resolved Comment: 32 year old now that delivered TAGA M at 10:52 on 10/09/2017 [facility] for cord prolapse and associated NRFHT's. - Routine PP care - H&H 10.9 --> 9.0 this AM; continue iron supplementation - PP contraception unknown at this time - Security Sales Consultant for will be Dr. Sewell - Will provide abdominal binder for post-op pain when ambulating - Exclusive ; senior recruitment consultant if needed (2) Prolapsed cord affecting fetus or Code(s): P02.4 - AFFECTED BY PROLAPSED CORD Status: Resolved Comment : - STAT C/S for cord prolpase [facility] - Apgars 7/8 - Cord Blood pH 6.9 with base excess 14.6; infant appears well and vigorous (3) Hypothyroidism Code(s): E03.9 - HYPOTHYROIDISM, UNSPECIFIED Status: Acute Comment: - Continue home dose of thyroid medication (4) Anemia affecting in third trimester Code(s): O99.013 - ANEMIA COMPLICATING , THIRD TRIMESTER Status: Acute Comment: - Continue iron supplementation PP - Assessment/Plan Dispo: LOS 24-48 hours from today. Will continue routine PP care. <Jing Moralez - Last Filed: 10/10/17 08:18> Vital Signs (12 hours) Temp Pulse Resp BP 10/10/17 12:00 98.8 F 72 20 10/10/17 11:59 98.8 F 72 20 106/63 10/10/17 08:03 98.2 F 63 20 105/58 L 10/10/17 08:00 98.2 F 63 20 10/10/17 06:15 20 10/10/17 04:00 98.0 F 59 L 18 99/54 L 10/10/17 02:50 18 Weight Weight 97.522 kg Result Diagrams: 10/10/17 05:02 Additional Labs: Post Labs Blood Type A POSITIVE 10/09/17 01:31 Hep Bs Antigen Non-Reactive S/CO (NonReactive) 10/09/17 01:31 <Bernadette Yousif - Last Filed: 10/10/17 14:05> Attending Addendum - Attending Addendum Date/Time: 10/10/17 1402 I personally evaluated the patient and discussed the management with Dr. Moralez I agree with the History, Examination, Assessment and Plan documented above with any addition or exceptions noted below. 32 yo female s/p STAT [facility] 2/2 cord prolapse. POD#1 Doing well. Pain not completely controlled. Reports upper abdominal pain likely related to pressure for assistance in delivery of . +Flatus. Tolerating PO. No N/V. Lochia appropriate. Bandage removed this AM. Incision healing well. No concerns. Breast feeding improving. VS reviewed. UOP reviewed. Fundus firm below umbilicus on exam. Appropriately tender. Non distended. RRR, CTA bilaterally Incision intact, no erythema, no drainage . Monitor pain control and Lochia. Would like pp BTL. No circ for . Continue inpatient. Possible d/c in AM if pain controlled and breast feeding improving. Tao <Bernadette Yousif - Last Filed: 10/10/17 14:05>
[2017-10-10] MEDS ORDERED: Levothyroxine Sodium 50 MCG TAB PO SCH (09:00)
[2017-10-10] MEDS: Levothyroxine Sodium 50 MCG TAB PO SCH (10:04)
[2017-10-10] MEDS: Prenatal Vitamin 1 TAB PO SCH (10:04)
[2017-10-10] MEDS: HYDROcodone/Acetaminophen 5/325 mg Tablet PO PRN ×3 (11:06→22:12)
[2017-10-10] MEDS: Ibuprofen 800 MG TAB PO SCH ×2 (14:15→22:12)
[2017-10-11] MEDS: Ibuprofen 800 MG TAB PO SCH ×2 (05:14→14:05)
[2017-10-11] MEDS: Levothyroxine Sodium 50 MCG TAB PO SCH (05:14)
[2017-10-11] MEDS: HYDROcodone/Acetaminophen 5/325 mg Tablet PO PRN ×2 (05:17→09:09)
--- NOTE | 2017-10-11 06:26 | PDOC.PP ---
Post Progress Note Post Day #: 2 Subjective: Patient states her pain is much better today. Still has some light bleeding but has not seen any clots. Is passing gas but has not had a BM yet. Is able to get up and walk around better now that her pain is better under control. Still has some pain in the corners of her incision while walking or moving around. Says breast feeding has picked up some and states she requested bottles from the nursery. Advised her to continue to try with only breast feeding due to baby's risk of developing NEC. Denies any fever/chills, chest pain, sob or LE pain. Would be willing to go home today. PO intake tolerated: yes Flatus: yes Ambulation: yes Vital Signs (12 hours) Temp Pulse Resp BP 10/11/17 04:27 98.3 F 18 10/11/17 00:07 98.3 F 18 10/10/17 19:55 98.3 F 18 127/66 Weight Weight 97.522 kg - Physical Examination General: NAD Cardiovascular: no m/r/g, RRR Respiratory: clear to auscultation bilaterally, non-labored breathing Abdominal: + bowel sounds, lochia, no distention, appropriately TTP Extremities: negative homans (B) Skin: CS incision dry & intact, no rash Neurological: no gross focal deficits Psychiatric: A&Ox3, normal affect Result Diagrams: 10/10/17 05:02 Additional Labs: Post Labs Blood Type A POSITIVE 10/09/17 01:31 Hep Bs Antigen Non-Reactive S/CO (NonReactive) 10/09/17 01:31 (1) Post-dates Code(s): O48.0 - POST-TERM Status: Resolved (2) Anemia affecting in third trimester Code(s): O99.013 - ANEMIA COMPLICATING , THIRD TRIMESTER Status: Acute Comment: - Continue iron supplementation PP (3) Hypothyroidism affecting in third trimester Code(s): O99.283 - ENDO, NUTRITIONAL AND METAB DISEASES COMP PREG, THIRD TRI; E03.9 - HYPOTHYROIDISM, UNSPECIFIED Status: Chronic (4) Obesity affecting Code(s): O99.210 - OBESITY COMPLICATING , UNSPECIFIED TRIMESTER Status: Chronic (5) Glucose intolerance Code(s): E74.39 - OTHER DISORDERS OF INTESTINAL CARBOHYDRATE ABSORPTION Status : Acute (6) Prolapsed cord affecting fetus or Code(s): P02.4 - AFFECTED BY PROLAPSED CORD Status: Resolved Comment : - STAT C/S for cord prolpase [facility] - Apgars 7/8 - Cord Blood pH 6.9 with base excess 14.6; appears well and vigorous (7) delivery delivered Code(s): O82 - ENCOUNTER FOR DELIVERY WITHOUT INDICATION Status: Resolved Comment: 32 year old now that delivered TAGA M at 10:52 on 10/09/2017 via [facility] for cord prolapse and associated NRFHT's. - Routine PP care - H&H 10.9 --> 9.0 this AM; continue iron supplementation - PP contraception unknown at this time - Professor Of Pathology for will be Dr. Sewell - Will provide abdominal binder for post-op pain when ambulating - Exclusive ; business risk consultant if needed - Assessment/Plan 32YO female POD #2 s/p STAT [facility] 2/2 cord prolapse. 1. day #2 s/p STAT primary [facility]: - Patient is doing well. Will continue routine care. - Will continue [place], ibuprofen, and tylenol PRN for pain control. - Is tolerating regular diet well w/ no N/V. - No BM yet so will continue docusate PRN. - Will continue to encourage ambulation & strict breast feeding. - Desires BTL for control. 2. : - Continues to improve. Patient states she has been feeding for at least 10 minutes per breast all day yesterday. - Will continue to monitor pain control and lochia. 3. Hypothyroidism: - Will continue levothyroxine. 4. Anemia of : - Will continue PNVs & ferrous sulfate QD as Hgb yesterday AM was 9.0. Dispo: Could possibly go home today since breast feeding has picked up. Would consider monitoring until after lunch to ensure baby is still feeding well before clearing for discharge. <Jessica Espino - Last Filed: 10/11/17 08:08> Vital Signs (12 hours) Temp Pulse Resp BP 10/11/17 08:11 98.1 F 57 L 20 107/56 L 10/11/17 04:27 98.3 F 67 18 10/11/17 00:07 98.3 F 67 18 Weight Weight 97.522 kg Result Diagrams: 10/10/17 05:02 Additional Labs: Post Labs Blood Type A POSITIVE 10/09/17 01:31 Hep Bs Antigen Non-Reactive S/CO (NonReactive) 10/09/17 01:31 <Lex Naqvi - Last Filed: 10/11/17 09:12> Attending Addendum - Attending Addendum Date/Time: 10/11/17 0912 I personally evaluated the patient and discussed the management with Dr. Espino. I agree with and repeated the History, Examination, Assessment and Plan documented above with any addition or exceptions noted below. Hopeful d/c this afternoon. Rx written for liang's, #10. <Lex Naqvi - Last Filed: 10/11/17 09:12>
[2017-10-11] MEDS ORDERED: Ferrous Sulfate 325 MG TAB PO SCH (08:00)
[2017-10-11 08:12] VITALS: BP 107/56; TEMP 98.1
[2017-10-11] MEDS: Prenatal Vitamin 1 TAB PO SCH (09:05)
--- NOTE | 2017-10-12 23:15 | EKG ---
Test Reason : Blood Pressure : / mmHG Vent. Rate : 071 BPM Atrial Rate : 071 BPM P-R Int : 128 ms QRS Dur : 090 ms QT Int : 416 ms P-R-T Axes : 019 007 014 degrees QTc Int : 452 ms Normal sinus rhythm with sinus arrhythmia Minimal voltage criteria for LVH, may be normal variant Borderline ECG No previous ECGs available Confirmed by Panda MELLO ([id number]) on 10/12/2017 11:15:13 PM Referred By: ADELE Barrios Confirmed By:Panda MELLO
== END 2017-10-11 16:20 | disposition home or self-care (01) | DRG 766 ==
LOC: L&D 10-09 00:34 → 3SW 10-09 14:58
PROVIDERS: ADMIT Student in an Organized Health Care Education/Training Program; ATTEND Student in an Organized Health Care Education/Training Program
PROC: 10D00Z1 Extraction of Products of Conception, Low, Open Approach (ICD-10-PCS; principal; 2017-10-09)
DX: O48.0 Post-term pregnancy (principal); Z37.0 Single live birth; Z3A.41 41 weeks gestation of pregnancy; O69.0XX1 Labor and delivery complicated by prolapse of cord, fetus 1; E66.9 Obesity, unspecified; E74.39 Other disorders of intestinal carbohydrate absorption; O99.283 Endocrine, nutritional and metabolic diseases complicating pregnancy, third trimester; E03.9 Hypothyroidism, unspecified; O99.013 Anemia complicating pregnancy, third trimester; O99.820 Streptococcus B carrier state complicating pregnancy
CPT/HCPCS: 36415; 51702; 82805; 85027; 86780; 86850; 86900; 86901; 87340; 90715; 93005; 93010; J0456; J0690; J1100; J1885; J2001; J2175; J2250; J2405; J2590; J2704; J3010; J3490; J7050

== ENCOUNTER 2019-11-05 15:12 | Emergency (ER) | payer MEDICAID, OTHER ==
[2019-11-06 16:02] LABS: SARS-CoV-2 MS2 Positive; SARS-CoV-2 N Gene Positive; SARS-CoV-2 S Gene Positive; SARS-CoV-2 by NAA DETECTED (NotDetected); SARS-CoV-2 orf1ab Positive
== END 2019-11-05 15:38 | disposition home or self-care (01) ==
LOC: ERS 15:12
DX: U07.1 COVID-19 (principal); E03.9 Hypothyroidism, unspecified
CPT/HCPCS: 87635; 99283; U0003